=== PATIENT | female | born 1965 | race Caucasian/White ===

== ENCOUNTER 2024-05-24 07:02 | Emergency (ER) | payer BC ==
[2024-05-24] MEDS: Ibuprofen 600 MG Tab PO ONE (08:01)
== END 2024-05-24 09:25 | disposition home or self-care (01) ==
LOC: JD.ED 07:02
DX: S83.005A Unspecified dislocation of left patella, initial encounter (principal); M22.2X2 Patellofemoral disorders, left knee; J45.909 Unspecified asthma, uncomplicated; Z87.891 Personal history of nicotine dependence; Z88.1 Allergy status to other antibiotic agents; Z88.8 Allergy status to other drugs, medicaments and biological substances; W10.9XXA Fall (on) (from) unspecified stairs and steps, initial encounter
CPT/HCPCS: 73562; 99283; A9270